=== PATIENT | male | born 1985 | race Caucasian/White ===

== ENCOUNTER 2018-09-27 13:11 | Emergency (ER) | payer MEDICAID ==
[~2018-09-27] VITALS: Ht 175.3 cm; Wt 77.3 kg
[~2018-09-27 13:11] MED LIST: DIAZ10TA PO; DIAZ5TAB PO; HYDR-4353 PO
[2018-09-27 13:19] VITALS: BP 128/78
--- NOTE | 2018-09-27 15:22 | NUR ---
Call placed to patient, left message to return to ED
== END 2018-09-27 15:24 | disposition left against medical advice (07) ==
LOC: ER 13:11
DX: R07.89 Other chest pain (principal); Z53.21 Procedure and treatment not carried out due to patient leaving prior to being seen by health care provider
CPT/HCPCS: 71045; 93005

== ENCOUNTER 2019-01-28 17:54 | Emergency (ER) | payer MEDICAID ==
[~2019-01-28] VITALS: Ht 175.3 cm; Wt 83.0 kg
[2019-01-28 18:14] VITALS: BP 124/62
--- NOTE | 2019-01-28 18:22 | NUR ---
PT AMB WITH TECH OVER TO XRAY.
[2019-01-28] MEDS ORDERED: KETO10TA2 PO (18:43)
[2019-01-28] MEDS ORDERED: ketorolac trometh inj. 60 MG/2 ML VIAL IM ONE (18:45)
== END 2019-01-28 19:01 | disposition home or self-care (01) ==
LOC: ER 17:56
DX: M77.11 Lateral epicondylitis, right elbow (principal); F41.9 Anxiety disorder, unspecified; F12.90 Cannabis use, unspecified, uncomplicated; Z98.890 Other specified postprocedural states; Z88.0 Allergy status to penicillin; Z79.899 Other long term (current) drug therapy; X50.1XXA Overexertion from prolonged static or awkward postures, initial encounter; Y93.89 Activity, other specified; Y92.89 Other specified places as the place of occurrence of the external cause; Y99.0 Civilian activity done for income or pay
CPT/HCPCS: 73080; 96372; 99283; J1885